=== PATIENT | male | born 1950 | race Caucasian/White ===

== ENCOUNTER 2018-05-14 09:59 | Inpatient (IN) | payer MEDICARE, BC ==
[2018-05-08 10:54] VITALS: BP 156/85
[~2018-05-14] VITALS: Ht 190.5 cm; Wt 110.6 kg
[~2018-05-14 09:59] MED LIST: BLOOD PRESSURE MEDS PO; cloniDINE/PF 100 MCG/ML, 10 ML ONE
[2018-05-14] MEDS ORDERED: LACTATED RINGERS 1,000 ML IV SCH (10:31)
[2018-05-14] MEDS ORDERED: ATOR-2 PO (10:31)
[2018-05-14] MEDS ORDERED: LOSA100T7 PO (10:31)
[2018-05-14] MEDS ORDERED: MIDAZOLAM 1 MG/ML, 2ML ONE (10:43)
[2018-05-14] MEDS ORDERED: FENTANYL PF 250 MCG/5ML ONE (10:43)
[2018-05-14] MEDS ORDERED: GABAPENTIN 300 MG CAPSULE PO ONE (11:00)
[2018-05-14] MEDS ORDERED: ACETAMINOPHEN 500 MG TABLET PO ONE (11:00)
[2018-05-14] MEDS ORDERED: PHENYLEPHRINE 10 MG/ML ONE (11:35)
[2018-05-14] MEDS ORDERED: BUPIVACAINE/PF-EPI 0.5% 1:200K ONE (12:15)
[2018-05-14] MEDS ORDERED: SCOPOLAMINE PATCH, 1.5MG PATCH.TD72 TD PRN (13:00)
[2018-05-14] MEDS ORDERED: OXYcodone 5 MG/5 ML ORAL.SOL UDC PO PRN (13:00)
[2018-05-14] MEDS ORDERED: ONDANSETRON 2MG/ML, 2ML IV PRN ×2 (13:00→19:30)
[2018-05-14] MEDS ORDERED: hydrALAzine 20 MG/ML, 1ML IV PRN (13:00)
[2018-05-14] MEDS ORDERED: DIAZEPAM 5 MG/ML, 2ML IVPush PRN (13:00)
[2018-05-14] MEDS ORDERED: ALBUTEROL/IPRATROPIUM 2.5MG/0.5MG, 3 ML NPPB PRN (13:00)
[2018-05-14] MEDS ORDERED: MEPERIDINE/PF 25MG/0.5ML IVPush PRN (13:00)
[2018-05-14] MEDS ORDERED: MIDAZOLAM 1 MG/ML, 2ML IV PRN (13:00)
[2018-05-14] MEDS ORDERED: LABETALOL 5MG/ML, 20ML IV PRN (13:00)
[2018-05-14] MEDS ORDERED: PROMETHAZINE 25 MG/ML, 1ML IV PRN (13:00)
[2018-05-14] MEDS ORDERED: FENTANYL PF 100 MCG/2ML IV PRN (13:00)
[2018-05-14] MEDS ORDERED: ONDANSETRON 2MG/ML, 2ML ONE (16:40)
[2018-05-14] MEDS ORDERED: CEFAZOLIN 1,000 MG ONE (16:40)
[2018-05-14] MEDS ORDERED: NEOSTIGMINE 1 MG/ML, 10ML ONE (16:40)
[2018-05-14] MEDS ORDERED: GLYCOPYRROLATE 0.2MG/1ML, 5ML ONE (16:40)
[2018-05-14] MEDS ORDERED: BUPIVACAINE/PF 0.5% ONE ×2 (16:40)
[2018-05-14] MEDS ORDERED: ROCURONIUM 10MG/ML,5ML ONE (16:40)
[2018-05-14] MEDS ORDERED: LIDOCAINE-MPF 2% ,5ML ONE (16:40)
[2018-05-14] MEDS ORDERED: SUCCINYLCHOLINE 20 MG/ML, 10ML ONE (16:40)
[2018-05-14] MEDS ORDERED: PROPOFOL 10 MG/ML, 20ML ONE (16:40)
[2018-05-14] MEDS ORDERED: DEXAMETHASONE 4 MG/ML, 1ML ONE (16:40)
[2018-05-14] MEDS ORDERED: HYDROmorphone 2 MG/ML, 1ML ONE (17:24)
[2018-05-14] MEDS ORDERED: OXYcodone 5 MG/5 ML ORAL.SOL UDC ONE (17:25)
[2018-05-14] MEDS: HYDROmorphone 2 MG/ML, 1ML IVPush PRN ×2 (17:32→17:45)
[2018-05-14] MEDS ORDERED: MORPHINE SULFATE 4 MG/ML, 1ML IV PRN (19:30)
[2018-05-14] MEDS ORDERED: OPIUM/BELLADONNA SUPP.RECT 16.2-60 MG PR PRN (19:30)
[2018-05-14] MEDS ORDERED: TEMAZEPAM 15 MG CAPSULE PO PRN (19:30)
[2018-05-14] MEDS ORDERED: LACTATED RINGERS 500 ML IV PRN (19:30)
[2018-05-14] MEDS: D5%-0.45NACL+KCL 20MEQ 1,000 ML IV SCH (23:08)
[2018-05-14] MEDS: ACETAMINOPHEN 500 MG TABLET PO SCH (23:08)
[2018-05-15 01:08] VITALS: BP 127/71
[2018-05-15 04:08] VITALS: BP 131/78
[2018-05-15] MEDS: ACETAMINOPHEN 500 MG TABLET PO SCH ×3 (05:00→17:00)
[2018-05-15 06:19] LABS: ANION GAP 8 mmol/L (5-15); CALCIUM 7.4 mg/dL (8.5-10.1); CHLORIDE 108 mmol/L (98-107); CREATININE 1.07 mg/dL (0.7-1.3)
[2018-05-15 07:52] VITALS: BP 123/74
[2018-05-15] MEDS ORDERED: ENOXAPARIN 40 MG/0.4 ML SQ SCH (08:00)
[2018-05-15] MEDS ORDERED: LOSARTAN 50MG TABLET PO SCH ×2 (09:00→09:11)
[2018-05-15] MEDS: D5%-0.45NACL+KCL 20MEQ 1,000 ML IV SCH (09:18)
[2018-05-15] MEDS: OXYcodone IR 5MG TABLET PO PRN ×2 (09:19→17:29)
[2018-05-15 12:55] VITALS: BP 134/72
[2018-05-15] MEDS ORDERED: DOCU-131 PO (16:51)
[2018-05-15] MEDS ORDERED: OXYC5CAP2 PO (16:51)
== END 2018-05-15 17:35 | disposition home or self-care (01) | DRG 708 ==
LOC: OUT 09:59 → 4NOR 18:25 → OUT 20:08
PROVIDERS: ADMIT Urology; ATTEND Urology
PROC: 0VT04ZZ Resection of Prostate, Percutaneous Endoscopic Approach (ICD-10-PCS; 2018-05-14)
PROC: 8E0W4CZ Robotic Assisted Procedure of Trunk Region, Percutaneous Endoscopic Approach (ICD-10-PCS; 2018-05-14)
PROC: 07BC4ZZ Excision of Pelvis Lymphatic, Percutaneous Endoscopic Approach (ICD-10-PCS; principal; 2018-05-14 12:00)
DX: C61 Malignant neoplasm of prostate (principal); I10 Essential (primary) hypertension; E78.5 Hyperlipidemia, unspecified; J45.909 Unspecified asthma, uncomplicated
CPT/HCPCS: 36415; 80048; 82570; 85014; 85018; 86850; 86900; 88305; 88309; G0378; J0690; J1100; J1170; J1650; J2250; J2405; J2704; J2710; J3010; J3490; C1760; J0330; J0735; J2370; J3480; J7120

== ENCOUNTER → 2018-05-21 | Outpatient (CLI) | payer MEDICARE, BC ==
[~2018-05-21] MED LIST changes: +ATOR-2 PO; +DOCU-131 PO; +LOSA100T7 PO; +OXYC5CAP2 PO; -cloniDINE/PF 100 MCG/ML, 10 ML ONE
== END | disposition home or self-care (01) ==
LOC: RAD 07:55
PROVIDERS: ATTEND Urology
DX: C61 Malignant neoplasm of prostate (principal)
CPT/HCPCS: 51600; 74430; Q9958